=== PATIENT | female | born 1945 | race Caucasian/White ===

== ENCOUNTER → 2017-09-07 | Outpatient (CLI) | payer MEDICARE ==
[~2017-09-07] MED LIST: ADVAIR 250-501 EACH INH; ADVAIR HFA 230M12 GM; ADVAIR HFA 230M12 GM IH; ALENDRONATE SOD35 MG PO; BACTRIM DS TAB1 EACH PO; CALCIUM 500 +1 EAC5 PO; CALCIUM 600 +1 EAC1 PO; DEPAKOTE ER500 MG PO; FISH OIL 1,001000 M2 PO; FLEXERIL PO; FOSAMAX 35 MG35 MG PO; HYDROCODONE-AP1 EAC6 PO; HYDROCODONE-APA1 TA1 PO; KEFLEX500 MG PO; LIPITOR10 MG PO; MEDROLDOSEPACK PO; NARATRIPTAN; NARATRIPTAN HC2.5 MG PO; NORCO 7.5-3251 EACH PO; ONDANSETRON HCL4 M2 PO; PEPCID20 MG PO; PREDNISONE 5 MG5 M1; PREMARIN0.3 MG PO; QUINU10 PD
== END ==
LOC: M.RAD 09:24
DX: Z12.31 Encounter for screening mammogram for malignant neoplasm of breast (principal)

== ENCOUNTER → 2018-11-10 | Outpatient (CLI) | payer MEDICARE | LOC: M.RAD 09:50 | DX: Z12.31 Encounter for screening mammogram for malignant neoplasm of breast (principal) ==

== ENCOUNTER 2018-11-21 18:40 | Emergency (ER) | payer MEDICARE ==
[~2018-11-21] VITALS: Ht 157.5 cm; Wt 53.5 kg
[2018-11-21] MEDS ORDERED: SYNTHROID200 MCG PO (18:50)
[2018-11-21 21:36] VITALS: BP 147/81
== END 2018-11-21 21:40 | disposition home or self-care (01) ==
LOC: M.ERS 18:40
DX: S92.352A Displaced fracture of fifth metatarsal bone, left foot, initial encounter for closed fracture (principal); J45.909 Unspecified asthma, uncomplicated; Z90.710 Acquired absence of both cervix and uterus; Z90.89 Acquired absence of other organs; Z88.0 Allergy status to penicillin; Z88.1 Allergy status to other antibiotic agents; Z88.2 Allergy status to sulfonamides; W01.0XXA Fall on same level from slipping, tripping and stumbling without subsequent striking against object, initial encounter; Y93.89 Activity, other specified; Y92.89 Other specified places as the place of occurrence of the external cause; Y99.8 Other external cause status

== ENCOUNTER 2019-06-02 21:28 | Emergency (ER) | payer MEDICARE ==
[~2019-06-02] VITALS: Ht 160 cm; Wt 54.4 kg
[~2019-06-02 21:28] MED LIST changes: +SYNTHROID200 MCG PO
[2019-06-02 22:44] LABS: HEMATOCRIT 36.6 % (37.0-47.0); HEMOGLOBIN 12.3 gm/dL (12.0-15.0); MCH 30.5 pg (26.0-34.0); MCHC 33.5 g/dL (28.0-37.0); MCV 91.3 fL (80.0-100.0); MPV 8.7 fl. (7.2-11.1); NUCLEATED RBCS 0 /100WBC; PLATELET COUNT* 142 thou/uL (150-400); RBC 4.02 mil/uL (4.20-5.00); RDW-CV 14.5 % (10.5-14.5); WBC 6.3 thou/uL (4.0-11.0)
[2019-06-02 22:53] LABS: CALCIUM 8.6 mg/dL (8.5-10.1); CREATININE 0.7 mg/dL (0.6-1.3); POTASSIUM 4.3 mmol/L (3.5-5.1)
[2019-06-02 22:58] LABS: ALBUMIN 3.7 g/dL (3.4-5.0); TOTAL BILIRUBIN 0.4 mg/dL (<0.1-1.0); TOTAL PROTEIN 6.9 g/dL (6.4-8.2)
[2019-06-02 23:03] LABS: ABSOLUTE EOSINOPHILS 0.2 thou/uL (0.0-0.7); ABSOLUTE LYMPHOCYTES 2.4 thou/uL (0.8-5.3); ABSOLUTE MONOCYTES 0.6 thou/uL (0.0-1.2); ABSOLUTE NEUTROPHILS 3.1 thou/uL (1.6-8.1); PLATELET ESTIMATE ADEQUATE
[2019-06-02 23:28] LABS: URINE BILIRUBIN NEGATIVE (Negative); URINE BLOOD 1+ (Negative); URINE CLARITY CLEAR; URINE COLOR YELLOW; URINE GLUCOSE-RANDOM NEGATIVE (Negative); URINE KETONES TRACE (Negative); URINE LEUKOCYTES-REFLEX 1+ (Negative); URINE NITRITE-REFLEX NEGATIVE (Negative); URINE PROTEIN NEGATIVE (Negative); URINE SPECIFIC GRAVITY 1.015 (1.005-1.030); URINE UROBILINOGEN 0.2 E.U./dl (0.2-1.0)
[2019-06-02 23:35] LABS: BACTERIA-REFLEX >30 Many /HPF (None Seen); CASTS None Seen /LPF (None Seen); CRYSTALS None Seen /LPF (None Seen); MUCUS 0-3 Light strn/LPF (None Seen); SQUAMOUS 0-3 Few /LPF (0-3); URINE WBC-REFLEX >25 Many /HPF (0-5); WBC CLUMPS Moderate (None Seen)
[2019-06-03] MEDS ORDERED: HYDROCODON-ACE1 EAC7 PO (00:12)
[2019-06-03 00:37] VITALS: BP 142/59
== END 2019-06-03 00:38 | disposition home or self-care (01) ==
LOC: M.ERS 21:28
PROVIDERS: Personal Emergency Response Attendant
DX: G43.909 Migraine, unspecified, not intractable, without status migrainosus (principal); J45.909 Unspecified asthma, uncomplicated; Z90.710 Acquired absence of both cervix and uterus; Z90.49 Acquired absence of other specified parts of digestive tract; Z88.0 Allergy status to penicillin; Z88.1 Allergy status to other antibiotic agents; Z88.2 Allergy status to sulfonamides

== ENCOUNTER → 2019-10-31 | Outpatient (CLI) | payer MEDICARE ==
[~2019-10-31] MED LIST changes: +HYDROCODON-ACE1 EAC7 PO
== END ==
LOC: M.LAB 08:08
PROVIDERS: ATTEND Podiatrist Foot Surgery
DX: Z11.59 Encounter for screening for other viral diseases (principal)

== ENCOUNTER → 2019-12-06 | Outpatient (CLI) | payer MEDICARE | LOC: M.RAD 10:03 | PROVIDERS: ATTEND Internal Medicine | DX: Z12.31 Encounter for screening mammogram for malignant neoplasm of breast (principal) ==

== ENCOUNTER 2020-01-12 07:43 | Emergency (ER) | payer MEDICARE ==
[~2020-01-12] VITALS: Ht 160 cm; Wt 50.8 kg
[2020-01-12 08:19] LABS: ABSOLUTE BASOPHILS 0.1 thou/uL (0.0-0.2); ABSOLUTE EOSINOPHILS 0.6 thou/uL (0.0-0.7); ABSOLUTE LYMPHOCYTES 2.8 thou/uL (0.8-5.3); ABSOLUTE MONOCYTES 0.6 thou/uL (0.0-1.2); ABSOLUTE NEUTROPHILS 2.4 thou/uL (1.6-8.1); BASOPHILS 1.2 %; EOSINOPHILS 8.8 %; HEMATOCRIT 37.4 % (37.0-47.0); HEMOGLOBIN 12.5 gm/dL (12.0-15.0); LYMPHOCYTES 43.6 %; MCH 30.5 pg (26.0-34.0); MCHC 33.6 g/dL (28.0-37.0); MONOCYTES 8.9 %; MPV 8.8 fl. (7.2-11.1); NUCLEATED RBCS 0 /100WBC; PLATELET COUNT* 163 thou/uL (150-400); POLYS 37.5 %; RBC 4.11 mil/uL (4.20-5.00); RDW-CV 14.1 % (10.5-14.5); WBC 6.5 thou/uL (4.0-11.0)
[2020-01-12 08:23] LABS: CALCIUM 8.8 mg/dL (8.5-10.1); CREATININE 0.9 mg/dL (0.6-1.3); POTASSIUM 3.9 mmol/L (3.5-5.1)
[2020-01-12 08:27] LABS: APTT 26.5 Seconds (25.0-31.3); PROTIME 10.5 Seconds (9.20-11.50)
[2020-01-12 08:36] LABS: ALBUMIN 3.4 g/dL (3.4-5.0); CK-MB MASS 0.9 ng/mL (<0.5-3.6); MAGNESIUM 1.6 mg/dL (1.8-2.4); TOTAL BILIRUBIN 0.6 mg/dL (<0.1-1.0); TOTAL PROTEIN 6.7 g/dL (6.4-8.2)
[2020-01-12 10:34] VITALS: BP 126/44
--- NOTE | 2020-01-12 11:57 | EKG ---
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: : 1945 Requested By: Adams Vogel Order Number: [id number] MD: Skip Handley Measurements Intervals [place] Rate: 73 P: 56 NC: 129 QRS: 22 QRSD: 78 T: 47 QT: 381 QTc: 420 Interpretive Statements Sinus rhythm Minimal ST depression, infero-lateral leads Baseline wander in lead(s) II,aVR,aVF Compared to ECG 04/19/2017 20:01:43 Myocardial infarct finding no longer present ST (T wave) deviation still present Electronically Signed On 01-12-2020 11:57:33 CDT by Skip Handley [email or web address] <ELECTRONICALLY SIGNED> By: Skip Handley MD, FAC 01/12/20 1157 0750 0750 Skip Handley MD, FACC /EPI
== END 2020-01-12 10:35 | disposition home or self-care (01) ==
LOC: M.ERS 07:43
PROVIDERS: Family Medicine
DX: R07.89 Other chest pain (principal); Z20.828 Contact with and (suspected) exposure to other viral communicable diseases; G43.909 Migraine, unspecified, not intractable, without status migrainosus; J45.909 Unspecified asthma, uncomplicated; Z88.2 Allergy status to sulfonamides; Z88.1 Allergy status to other antibiotic agents; Z88.0 Allergy status to penicillin; Z90.710 Acquired absence of both cervix and uterus; Z90.89 Acquired absence of other organs

== ENCOUNTER → 2020-12-07 | Outpatient (CLI) | payer MEDICARE | LOC: M.RAD 10:23 | PROVIDERS: ATTEND Internal Medicine | DX: Z12.31 Encounter for screening mammogram for malignant neoplasm of breast (principal); N64.89 Other specified disorders of breast ==